=== PATIENT | male | born 1980 | race Caucasian/White ===

== ENCOUNTER 2016-05-13 19:50 | Emergency (ER) | payer BC ==
[~2016-05-13] VITALS: Ht 185.4 cm; Wt 103.7 kg
[2016-05-13] MEDS ORDERED: CYMBALTA60 MG PO (20:35)
[2016-05-13] MEDS ORDERED: VIBERZI100 MG PO (20:36)
[2016-05-13 22:25] VITALS: BP 00/00
== END 2016-05-13 22:27 | disposition left against medical advice (07) ==
LOC: RME 19:50 → EME 19:50 → RME 22:27
DX: J18.9 Pneumonia, unspecified organism (principal); S22.39XD Fracture of one rib, unspecified side, subsequent encounter for fracture with routine healing; Z87.891 Personal history of nicotine dependence; Z95.0 Presence of cardiac pacemaker
CPT/HCPCS: 99281; 99284

== ENCOUNTER 2016-05-18 11:24 | Emergency (ER) | payer BC ==
[~2016-05-18] VITALS: Ht 182.9 cm; Wt 103.9 kg
[~2016-05-18 11:24] MED LIST: CYMBALTA60 MG PO; VIBERZI100 MG PO
[2016-05-18 12:04] LABS: HEMATOCRIT 39.3 % (38.0-50.0); MCH 29.3 PG (29.0-34.0); MCHC 34.1 G/DL (30.0-36.0); MCV 85.8 FL (86-99); MEAN PLAT.VOLUME 9.3 uM^3 (9.0-12.4); PLATELET COUNT 252 K/uL (156-360); RBC DIS.WIDTH-CV 13.1 % (11.8-14.6); RBC DIS.WIDTH-SD 40.2 % (39-53); RED BLOOD COUNT 4.58 M/uL (4.00-5.50); WHITE BLOOD COUNT 9.5 K/uL (4.1-10.2)
[2016-05-18 12:12] LABS: CHLORIDE 105 mEq/L (99-109); POTASSIUM 3.8 mEq/L (3.7-5.4); SODIUM 139 mEq/L (136-147)
[2016-05-18 12:14] LABS: GLUCOSE 94 mg/dL (70-99)
[2016-05-18 12:15] LABS: ANION GAP 12 MEQ/L (2-14)
[2016-05-18 12:18] LABS: GFR ESTIMATE (CALCULATED) > 59 mL/min/
[2016-05-18 12:19] LABS: UREA NITROGEN (BUN) 18 mg/dL (9-23)
[2016-05-18 12:24] LABS: TROP-I INTERPRETATION NEGATIVE; TROPONIN-I < 0.01 ng/mL (0.0-0.30)
[2016-05-18] MEDS ORDERED: NORCO 5/3251 TABLET PO (13:24)
[2016-05-18] MEDS ORDERED: HYCODAN SYRUP480 ML PO (13:24)
[2016-05-18 13:57] VITALS: BP 132/79
== END 2016-05-18 14:03 | disposition home or self-care (01) ==
LOC: EME 11:24
PROVIDERS: Nurse Practitioner Family
DX: S29.011A Strain of muscle and tendon of front wall of thorax, initial encounter (principal); Z87.891 Personal history of nicotine dependence
CPT/HCPCS: 71020; 80048; 84484; 85027; 93005; 99281; 99284

== ENCOUNTER 2016-05-21 17:35 | Emergency (ER) | payer BC ==
[~2016-05-21] VITALS: Ht 182.9 cm; Wt 102.3 kg
[~2016-05-21 17:35] MED LIST changes: +HYCODAN SYRUP480 ML PO; +NORCO 5/3251 TABLET PO
[2016-05-21 18:16] LABS: HEMATOCRIT 39.2 % (38.0-50.0); MCH 29.2 PG (29.0-34.0); MCHC 33.9 G/DL (30.0-36.0); MCV 86.2 FL (86-99); MEAN PLAT.VOLUME 9.1 uM^3 (9.0-12.4); PLATELET COUNT 264 K/uL (156-360); RBC DIS.WIDTH-CV 13.2 % (11.8-14.6); RBC DIS.WIDTH-SD 40.8 % (39-53); RED BLOOD COUNT 4.55 M/uL (4.00-5.50); WHITE BLOOD COUNT 14.8 K/uL (4.1-10.2)
[2016-05-21 18:21] LABS: CHLORIDE 108 mEq/L (99-109); POTASSIUM 3.7 mEq/L (3.7-5.4); SODIUM 142 mEq/L (136-147)
[2016-05-21 18:23] LABS: GLUCOSE 104 mg/dL (70-99)
[2016-05-21 18:24] LABS: ANION GAP 10 MEQ/L (2-14)
[2016-05-21 18:27] LABS: GFR ESTIMATE (CALCULATED) > 59 mL/min/
[2016-05-21 18:28] LABS: UREA NITROGEN (BUN) 9 mg/dL (9-23)
[2016-05-21 18:36] LABS: TROP-I INTERPRETATION NEGATIVE; TROPONIN-I < 0.01 ng/mL (0.0-0.30)
[2016-05-21] MEDS ORDERED: DILAUDID2 MG PO (22:28)
[2016-05-21] MEDS ORDERED: INDOCIN25 MG PO (22:28)
[2016-05-21 23:03] VITALS: BP 123/84
== END 2016-05-21 23:04 | disposition home or self-care (01) ==
LOC: EME 17:35
DX: J18.9 Pneumonia, unspecified organism (principal); R09.1 Pleurisy; Z95.0 Presence of cardiac pacemaker; Z88.6 Allergy status to analgesic agent
CPT/HCPCS: 71020; 71275; 80048; 84484; 85027; 93005; 99281; 99284; J1100; J1885; J2270